=== PATIENT | female | born 1980 | race African-American/Black ===

== ENCOUNTER 2020-06-14 15:38 | Outpatient (CLI) | payer OTHER ==
[~2020-06-14] VITALS: Ht 170.2 cm; Wt 98.6 kg
--- NOTE | 2020-06-14 15:10 | NUR ---
Patient arrives ambulatory with spouse with complaints of contractions over the past several days. Patient reports they are now every 5 minutes apart, denies ROM or vaginal bleeding and reports normal movement. Patient changes into gown, EFM explained and placed. VS obtained. 1525- SVE by this RN /. Patient repositioned WL and updated on plan of care. Assessment completed.
[2020-06-14 15:27] VITALS: BP 107/64; PULSE 76; TEMP 98.3
[~2020-06-14 15:38] MED LIST: IRON TABLETS325 MG PO; PRENATAL
[2020-06-14 16:00] VITALS: BP 107/64; PULSE 76; TEMP 98.3
[2020-06-14 16:30] VITALS: BP 111/75; PULSE 75
--- NOTE | 2020-06-14 16:55 | NUR ---
Patient given dc instructions, reviewed labor precautions and kick counts. Patient agrees and denies questions. Leaves ambulatory with spouse.
[2020-06-18] MEDS ORDERED: TYLENOL 500MG500 MG PO (10:38)
== END 2020-06-14 16:55 | disposition home or self-care (01) ==
LOC: LDRO 15:38 → LDR 16:38 → LDRO 16:55
DX: O62.9 Abnormality of forces of labor, unspecified (principal); Z3A.40 40 weeks gestation of pregnancy; Z86.19 Personal history of other infectious and parasitic diseases
CPT/HCPCS: OP

== ENCOUNTER 2020-06-16 11:33 | Outpatient (CLI) | payer OTHER ==
[~2020-06-16] VITALS: Ht 170.2 cm; Wt 86.8 kg
--- NOTE | 2020-06-16 11:35 | NUR ---
Pt arrives on unit ambulatory with spouse. States regular ctx throughout the weekend that, "I just cannot take the pain anymore." Denies LOF, vaginal bleeding, and reports GFM. EFM and toco applied. VSS. SVE per this RN /-2 with brown discharge noted on glove. Admission assessment completed. Dr. Copeland notified. VORB for 1 hour observation and recheck SVE. Pt updated on POC. Bed locked in low position. Call light within reach. No questions or concerns at this time.
[2020-06-16 12:30] VITALS: BP 111/69; PULSE 84; TEMP 98
[2020-06-16 13:27] VITALS: BP 119/56; PULSE 81
--- NOTE | 2020-06-16 13:30 | NUR ---
STEFANE unchanged. Pt taken off monitors. Roles on unit. Ok to depart. Discharge instructions given. Pt verbalizes understanding. Leaves unit ambulatory with spouse.
== END 2020-06-16 13:30 | disposition home or self-care (01) ==
LOC: LDRO 11:33 → LDR 11:41 → LDRO 13:30
DX: O26.93 Pregnancy related conditions, unspecified, third trimester (principal); Z3A.40 40 weeks gestation of pregnancy

== ENCOUNTER 2020-06-18 10:38 | Inpatient (IN) | payer OTHER ==
[~2020-06-18] VITALS: Ht 170.2 cm; Wt 96.4 kg
[2020-06-18] VITALS (45 sets, daily range): BP systolic 98–129; BP diastolic 45–85; PULSE 63–110; TEMP 97.5–98.8
--- NOTE | 2020-06-18 10:33 | NUR ---
1033-G1 40.4 GBS NEG PATIENT OF TO UNIT FROM OFFICE AFTER SVE IN OFFICE /BB. PATIENT HAS BEEN ON UNIT FOR LABOR CHECK TWICE IN THE LAST THREE DAYS AND WAS PREVIOUSLY 1CM. ASSISTED INTO GOWN AND PLACED ONF EFM. VSS, SVE 3-/-2. ASSESSMENT COMPLETE. UPDTAED ON PLAN OF CARE. 1145-SVE CHANGED -3, CONTRACTIONS PALPATE FIRM, PATIENT UNCOMFORTABLE WITH CONTRACTIONS. UPDATED MD. ORDERS TO ADMIT PATIENT. 1210-UPDTAD PATIENT ON PLAN FOR ADMISSION. IV TO RIGHT HAND, BLOOD COLLECTED AND SENT TO LAB. IVF STARTED, SEE EMAR.
[~2020-06-18 10:38] MED LIST changes: +TYLENOL 500MG500 MG PO
[2020-06-18] MEDS ORDERED: BENADRYL25 M2 PO (10:39)
[2020-06-18 12:27] LABS: BASO % 0.3 % (0.0-2.0); EOS # 0.2 (0.0-0.7); GRAN % 71.7 % (42.2-75.2); HEMATOCRIT 39.7 % (37.0-47.0); HEMOGLOBIN 13.2 g/dl (12.5-16.0); LYMPH % 17.7 % (20.0-51.0); MEAN CELL VOLUME 89 fl (80.0-100.0); MEAN CORPUSCULAR HEMOGLOBIN 30 pg (27.0-31.0); MEAN CORPUSCULAR HGB CONC 33 g/dl (33.0-37.0); MEAN PLATELET VOLUME 11.3 fl (7.4-10.4); MONO # 0.9 (0.1-0.6); MONO % 7.9 % (1.7-9.3); PLATELET COUNT 229 K/mm3 (130-400); RED BLOOD COUNT 4.47 M/mm3 (4.10-5.30); REDCELL DISTRIBUTION WIDTH-CV 12.7 % (11.5-14.5)
--- NOTE | 2020-06-18 12:50 | NUR ---
1250-Dr. Block in room. Reviews FHR monitor. SVE by MD unchanged. Orders to continue to increase pitocin per protocol max dose 26mu/min. MD palpates on abdomen.
--- NOTE | 2020-06-18 13:51 | NUR ---
1309 - Late decel noted, anna at 125, lasting approximatley 1 min before returning to baseline. Moderate variability noted. 1314, 1320 - Early decels with contractions noted. Mother repositioned WL after contraction at 1314
--- NOTE | 2020-06-18 13:56 | NUR ---
start pitocin per Dr. Block.
--- NOTE | 2020-06-18 14:29 | NUR ---
Dr. Block reviewed FHR strip and late decels. Provider ok with strip, notes good variability, orders to continue plan of care.
--- NOTE | 2020-06-18 17:12 | NUR ---
1635 - Dr. Block on unit, evaluates FHR strip. 1639 - Dr. Block to pt bedside. IUPC, FSE insterted by Dr. Block, tracing well. SVE per provider /-2. Orders given to continue increasing pitocin as tolerated. 1648 - Schulte placed. 165 - Pt repositioned RL with PB.
--- NOTE | 2020-06-18 17:28 | NUR ---
Dr. Block remains on unit, review FHR strip. FHR variability minimal with irregular contractions at this time, pt asleep in RL position with PB. Physician continuing to monitor.
--- NOTE | 2020-06-18 20:15 | NUR ---
1950 Dr. Block to unit. Reviews FHR tracing. To patient room. SVE with no change. Dr. Block discusses with patient and . 1951 Pitocin turned off. 1954 Patient and spouse given time to discuss . 1999 Patient prepped for OR. 2014 Patient to OR via bed.
[2020-06-19] VITALS (7 sets, daily range): BP systolic 96–123; BP diastolic 51–73; PULSE 67–98; TEMP 97.6–98.1
[2020-06-20] MEDS ORDERED: IBU600 MG PO (07:48)
[2020-06-20] MEDS ORDERED: PERCOCET 325 MG1 TA2 PO (07:49)
[2020-06-20 08:30] VITALS: BP 97/43; PULSE 80; TEMP 98.1
[2020-06-20 17:10] VITALS: BP 125/64; PULSE 87; TEMP 98
[2020-06-20 20:00] VITALS: BP 109/56; PULSE 76; TEMP 97.9
[2020-06-21 08:15] VITALS: BP 114/57; PULSE 90; TEMP 98
--- NOTE | 2020-06-21 14:30 | NUR ---
Dismiss instructions given, verbalizes understanding.
== END 2020-06-21 14:30 | disposition home or self-care (01) | DRG 787 ==
LOC: LDRO 10:38 → OB 11:55 → LDR 11:55 → OB 20:54
PROVIDERS: Obstetrics & Gynecology; ADMIT Obstetrics & Gynecology
PROC: 10D00Z1 Extraction of Products of Conception, Low, Open Approach (ICD-10-PCS; principal; 2020-06-18)
DX: O48.0 Post-term pregnancy (principal); O98.42 Viral hepatitis complicating childbirth; B19.10 Unspecified viral hepatitis B without hepatic coma; Z3A.40 40 weeks gestation of pregnancy; Z37.0 Single live birth
CPT/HCPCS: J0690; J1100; J1885; J2210; J2405; J2590; J7120